=== PATIENT | male | born 2000 | race African-American/Black ===

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

== ENCOUNTER 2022-03-09 13:18 | Emergency (ER) | payer OTHER ==
[2022-03-09 13:26] VITALS: BP 133/82; TEMP 98.8; BMI 39.8
[2022-03-09] MEDS ORDERED: diphenhydrAMINE HCL 50 MG CAPSULE PO ONE (14:50)
[2022-03-09] MEDS ORDERED: DEXAMETHASONE SOD PHOSPHATE 10 MG/1 ML VIAL IM ONE (14:50)
[2022-03-09] MEDS ORDERED: diphenhydrAMINE HCL 25 MG CAPSULE (FP) PO ONE (14:56)
[2022-03-09] MEDS ORDERED: DEXAMETHASONE SOD PHOSPHATE 10 MG/1 ML VIAL ONE (14:56)
[2022-03-09 15:10] VITALS: PULSE 75
== END 2022-03-09 15:12 | disposition home or self-care (01) ==
LOC: JERFT 13:18 → JER 13:18 → JERFT 15:12
DX: L50.0 Allergic urticaria (principal)
CPT/HCPCS: 99283-25; J1100